=== PATIENT | female | born 1975 | race Caucasian/White ===

== ENCOUNTER 2018-08-25 15:25 | Outpatient (RCR) | payer OTHER ==
[~2018-08-25 15:25] MED LIST: FLEXERIL10 MG PO; LORTAB 5/500 501 TAB PO; NAPROSYN PO; NO HOME MEDICATIONS
== END 2018-11-23 | disposition home or self-care (01) ==
LOC: WSOH
DX: S46.011A Strain of muscle(s) and tendon(s) of the rotator cuff of right shoulder, initial encounter (principal); X50.0XXA Overexertion from strenuous movement or load, initial encounter; Y93.F9 Activity, other caregiving; Y92.009 Unspecified place in unspecified non-institutional (private) residence as the place of occurrence of the external cause; Y99.0 Civilian activity done for income or pay; F17.210 Nicotine dependence, cigarettes, uncomplicated

== ENCOUNTER → 2019-04-02 | Outpatient (CLI) | payer BC | LOC: MC.RAD 07:38 | DX: Z12.31 Encounter for screening mammogram for malignant neoplasm of breast (principal) ==

== ENCOUNTER 2020-06-11 14:55 | Outpatient (RCR) | payer OTHER | END 2020-08-10 | disposition home or self-care (01) | LOC: WSOH | DX: M54.41 Lumbago with sciatica, right side (principal); M25.551 Pain in right hip; Z90.89 Acquired absence of other organs; Y99.0 Civilian activity done for income or pay ==

== ENCOUNTER 2020-09-15 15:32 | Outpatient (RCR) | payer OTHER | END 2020-09-16 14:32 | disposition home or self-care (01) | LOC: WSOH 15:32 | DX: M54.31 Sciatica, right side (principal); F41.8 Other specified anxiety disorders; Y99.0 Civilian activity done for income or pay; Z90.89 Acquired absence of other organs ==

== ENCOUNTER 2020-11-12 13:41 | Outpatient (RCR) | payer OTHER | END 2021-02-10 | disposition home or self-care (01) | LOC: WSOH | DX: S61.411A Laceration without foreign body of right hand, initial encounter (principal); F41.8 Other specified anxiety disorders; M51.36 Other intervertebral disc degeneration, lumbar region; Z90.89 Acquired absence of other organs; Y99.0 Civilian activity done for income or pay | CPT/HCPCS: A9270-GY ==

== ENCOUNTER → 2021-06-18 | Outpatient (CLI) | payer OTHER, BC | LOC: COL.VAS 08:45 | DX: M79.89 Other specified soft tissue disorders (principal); M79.604 Pain in right leg ==

== ENCOUNTER 2021-06-25 14:55 | Outpatient (RCR) | payer OTHER ==
[2021-08-05] MEDS ORDERED: MOBIC15 MG PO (17:29)
[2021-08-05] MEDS ORDERED: DOXYCYCLINE 10100 MG PO (18:29)
== END 2021-08-07 | disposition home or self-care (01) ==
LOC: WSOH
DX: S83.8X1A Sprain of other specified parts of right knee, initial encounter (principal); S93.402A Sprain of unspecified ligament of left ankle, initial encounter; S80.11XA Contusion of right lower leg, initial encounter; M54.50 Low back pain, unspecified; Y99.0 Civilian activity done for income or pay

== ENCOUNTER 2021-08-05 17:16 | Emergency (ER) | payer BC ==
[~2021-08-05] VITALS: Ht 170.2 cm; Wt 118.2 kg
[2021-08-05 17:29] VITALS: BP 138/83; PULSE 97; TEMP 98.9
[2021-08-05] MEDS ORDERED: MOBIC15 MG PO (17:29)
[2021-08-05 18:05] LABS: BASO % 0.3 % (0.0-2.0); EOS # 0.1 K/mm3 (0.0-0.7); EOS % 2.1 % (0.0-4.0); GRAN # 3.3 K/mm3 (1.4-6.5); GRAN % 50.9 % (42.2-75.2); HEMATOCRIT 43.6 % (37.0-47.0); HEMOGLOBIN 14.6 g/dl (12.5-16.0); LYMPH # 2.5 K/mm3 (1.2-3.4); LYMPH % 37.5 % (20.0-51.0); MEAN CELL VOLUME 83 fl (80.0-100.0); MEAN CORPUSCULAR HEMOGLOBIN 28 pg (27-31); MEAN CORPUSCULAR HGB CONC 34 g/dl (33.0-37.0); MEAN PLATELET VOLUME 9.9 fl (7.4-10.4); MONO # 0.6 K/mm3 (0.1-0.6); PLATELET COUNT 267 K/mm3 (130-400); RED BLOOD COUNT 5.23 M/mm3 (4.10-5.30); REDCELL DISTRIBUTION WIDTH-CV 14.3 % (11.5-14.5)
[2021-08-05] MEDS ORDERED: DOXYCYCLINE 10100 MG PO (18:29)
== END 2021-08-05 18:43 | disposition home or self-care (01) ==
LOC: COL.ER 17:16
PROVIDERS: Nurse Practitioner
DX: L03.115 Cellulitis of right lower limb (principal); F17.210 Nicotine dependence, cigarettes, uncomplicated

== ENCOUNTER 2023-10-23 14:12 | Emergency (ER) | payer SELFPAY ==
[~2023-10-23] VITALS: Ht 170.2 cm; Wt 127.3 kg
[~2023-10-23 14:12] MED LIST changes: +DOXYCYCLINE 10100 MG PO; +MOBIC15 MG PO
[2023-10-23 14:19] VITALS: TEMP 97.8
[2023-10-23] MEDS ORDERED: NS 500 ML IV ONE (15:15)
[2023-10-23] MEDS ORDERED: Ketorolac 30 MG/ML VIAL IV ONE (15:15)
[2023-10-23] MEDS ORDERED: diphenhydrAMINE 50 MG/ML 1 ML VIAL IV ONE (15:15)
[2023-10-23 17:05] VITALS: BP 150/99; PULSE 80
== END 2023-10-23 17:05 | disposition home or self-care (01) ==
LOC: COL.ER 14:12
DX: G43.109 Migraine with aura, not intractable, without status migrainosus (principal); M54.2 Cervicalgia; M79.605 Pain in left leg; M79.602 Pain in left arm; R20.2 Paresthesia of skin; F17.210 Nicotine dependence, cigarettes, uncomplicated; V43.52XA Car driver injured in collision with other type car in traffic accident, initial encounter; Y92.410 Unspecified street and highway as the place of occurrence of the external cause
CPT/HCPCS: J1200; J1885; J2765; J3475; J7040